=== PATIENT | female | born 1975 | race Caucasian/White ===

== ENCOUNTER 2025-04-10 07:45 | Emergency (ER) | payer MEDICAID ==
[~2025-04-10] VITALS: Ht 142.2 cm; Wt 77.1 kg
[2025-04-10 07:55] VITALS: BP 131/69
[2025-04-10] MEDS ORDERED: IBUP-1955 PO (08:50)
[2025-04-10 09:03] VITALS: BP 131/69; TEMP 97.8; O2SAT 95
== END 2025-04-10 09:04 | disposition home or self-care (01) ==
LOC: ER 07:45
DX: S82.831A Other fracture of upper and lower end of right fibula, initial encounter for closed fracture (principal); E11.9 Type 2 diabetes mellitus without complications; Z86.73 Personal history of transient ischemic attack (TIA), and cerebral infarction without residual deficits; X50.1XXA Overexertion from prolonged static or awkward postures, initial encounter; Y93.89 Activity, other specified; Y92.89 Other specified places as the place of occurrence of the external cause; Y99.8 Other external cause status
CPT/HCPCS: 73610; A4606; A4663